=== PATIENT | male | born 1945 | race Caucasian/White ===

== ENCOUNTER 2017-07-26 02:14 | Emergency (ER) | payer MEDICARE ==
[~2017-07-26] VITALS: Ht 177.8 cm; Wt 86.0 kg
[2017-07-26] MEDS ORDERED: FLEC50TA25 PO (02:36)
[2017-07-26] MEDS ORDERED: DILT180C53 PO (02:36)
[2017-07-26] MEDS ORDERED: ASPI-496 PO (02:36)
[2017-07-26] MEDS ORDERED: ATOR40TA78 PO (02:36)
[2017-07-26] MEDS ORDERED: METF500T4 PO (02:36)
[2017-07-26] MEDS ORDERED: AMLO5TAB2 PO (02:36)
[2017-07-26] MEDS ORDERED: TRAZ50TA18 PO (02:36)
[2017-07-26] MEDS ORDERED: DIPH,PERTUSS(ACELL),TET VAC/PF 0.5 ML IM-VACC ONE ×2 (03:30→03:33)
[2017-07-26] MEDS ORDERED: SODIUM CHLORIDE 0.9% 1,000ML IVBOLUS ONE (03:30)
[2017-07-26] MEDS ORDERED: ONDANSETRON 2MG/ML, 2ML IVPush ONE (03:30)
[2017-07-26] MEDS ORDERED: SODIUM CHLORIDE FLUSH 10ML SYR IVF ONE (03:30)
[2017-07-26] MEDS ORDERED: ONDANSETRON 2MG/ML, 2ML ONE (03:32)
[2017-07-26] MEDS ORDERED: MAALOX/HYOSCYAMINE/LIDOCAINE 45 ML BTL ONE (04:22)
[2017-07-26] MEDS ORDERED: MAALOX/HYOSCYAMINE/LIDOCAINE 45 ML BTL PO ONE (04:30)
[2017-07-26 05:39] VITALS: BP 120/50
== END 2017-07-26 05:42 | disposition home or self-care (01) ==
LOC: ED 04:42
DX: S51.011A Laceration without foreign body of right elbow, initial encounter (principal); S09.90XA Unspecified injury of head, initial encounter; E11.9 Type 2 diabetes mellitus without complications; W01.0XXA Fall on same level from slipping, tripping and stumbling without subsequent striking against object, initial encounter; Y93.01 Activity, walking, marching and hiking; Y99.8 Other external cause status; Y92.89 Other specified places as the place of occurrence of the external cause
CPT/HCPCS: 12001; 70450; 90471; 90715; 93005; 96361; 96374; 99284; J2405; J7030